=== PATIENT | female | born 1995 | race American Indian/Alaskan Native ===

== ENCOUNTER 2016-11-02 11:58 | Emergency (ER) | payer BC, MEDICAID ==
[2016-11-02 12:14] VITALS: BP 117/70
[2016-11-02] MEDS ORDERED: FLEXERIL PO ONE (16:44)
[2016-11-02] MEDS ORDERED: MOTRIN PO ONE (16:44)
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
== END 2016-11-02 18:42 | disposition home or self-care (01) ==
LOC: ED 11:58
DX: S16.1XXA Strain of muscle, fascia and tendon at neck level, initial encounter (principal); E66.9 Obesity, unspecified; E03.9 Hypothyroidism, unspecified; Z88.1 Allergy status to other antibiotic agents; V89.2XXA Person injured in unspecified motor-vehicle accident, traffic, initial encounter; Y93.89 Activity, other specified; Y99.9 Unspecified external cause status; Y92.410 Unspecified street and highway as the place of occurrence of the external cause
CPT/HCPCS: 72125; 99283